=== PATIENT | male | born 1965 | race Caucasian/White ===

== ENCOUNTER 2023-12-23 16:17 | Emergency (ER) | payer OTHER ==
[2023-12-23] MEDS: Diphtheria,Pertussis(Acell),Tetanus Vaccine 0.5 ML Syringe IM ONE (17:16)
== END 2023-12-23 17:40 | disposition home or self-care (01) ==
LOC: LL.ED 16:17
DX: S01.81XA Laceration without foreign body of other part of head, initial encounter (principal); Z23 Encounter for immunization; I10 Essential (primary) hypertension; E66.9 Obesity, unspecified; E11.9 Type 2 diabetes mellitus without complications; Z88.0 Allergy status to penicillin; Z88.1 Allergy status to other antibiotic agents; Z88.2 Allergy status to sulfonamides; W22.8XXA Striking against or struck by other objects, initial encounter
CPT/HCPCS: 12011; 90471; 90715; 99282-25